=== PATIENT | female | born 1995 | race Caucasian/White ===

== ENCOUNTER 2017-06-11 05:06 | Emergency (ER) | payer OTHER ==
[~2017-06-11] VITALS: Ht 157.5 cm; Wt 54.4 kg
== END 2017-06-11 05:28 | disposition left against medical advice (07) ==
LOC: ER 05:06
DX: F41.9 Anxiety disorder, unspecified (principal)

== ENCOUNTER 2017-11-02 21:58 | Emergency (ER) | payer OTHER ==
[~2017-11-02] VITALS: Ht 157.5 cm; Wt 56.7 kg
[2017-11-02] MEDS ORDERED: ONDANSETRON HCL 4 MG ORAL DISINTEGRATING TAB PO ONE (22:30)
[2017-11-02] MEDS ORDERED: MORPHINE SULFATE 5 MG/ML VIAL IV ONE (22:30)
[2017-11-02 23:17] VITALS: BP 160/77
== END 2017-11-02 23:22 | disposition home or self-care (01) ==
LOC: FSED 21:58
DX: R10.9 Unspecified abdominal pain (principal); R11.0 Nausea; N20.1 Calculus of ureter
CPT/HCPCS: 74176; 81003; 81025; 96372; 99283; J2270

== ENCOUNTER 2017-11-06 15:43 | Emergency (ER) | payer OTHER ==
[~2017-11-06] VITALS: Ht 157.5 cm; Wt 56.7 kg
[2017-11-06] MEDS ORDERED: HYDROCODONE/APAP 5MG-325MG TAB PO ONE (16:15)
[2017-11-06] MEDS ORDERED: MORPHINE SULFATE 5 MG/ML VIAL IM ONE (16:15)
[2017-11-06 17:31] VITALS: BP 127/81
== END 2017-11-06 17:32 | disposition home or self-care (01) ==
LOC: FSED 15:43
DX: R10.31 Right lower quadrant pain (principal); R11.0 Nausea; N20.1 Calculus of ureter
CPT/HCPCS: 81003; 99283; J2270